=== PATIENT | male | born 2000 | race Caucasian/White ===

== ENCOUNTER 2021-10-21 06:45 | Day surgery (SDC) | payer BC ==
[2021-10-21] MEDS ORDERED: Ringers Lactate 1,000 ML IV ONE (07:20)
[2021-10-21] MEDS ORDERED: CEFAZOLIN SODIUM 1 GM/VIAL ONE (07:20)
[2021-10-21 07:30] LABS: SARS-CoV-2 Antigen Rapid Res Negative (Negative)
[2021-10-21 07:31] LABS: Absolute Lymphocytes (CBC) 2.1 K/uL (0.7-4.9); Hematocrit 45.6 % (39.6-49.0); Lymphocytes % 28.7 % (15.3-44.8); MCV 90.2 fL (80-100); MPV 7.7 fL (7.6-11.3); RBC Red Blood Cell Count 5.05 M/uL (4.33-5.43)
[2021-10-21 07:37] LABS: Potassium 4.1 mmol/L (3.5-5.1)
[2021-10-21] MEDS ORDERED: LIDOCAINE 2% MPF 5 ML VIAL ONE (07:59)
[2021-10-21] MEDS ORDERED: FENTANYL CITR 100 MCG/2 ML ONE (07:59)
[2021-10-21] MEDS ORDERED: ROCURONIUM 50 MG/5 ML VIAL IV ONE (07:59)
[2021-10-21] MEDS ORDERED: propofoL 200 MG/20 ML VIAL IV ONE (07:59)
[2021-10-21] MEDS ORDERED: MIDAZOLAM HCL 2 MG/2 ML INJ ONE (07:59)
[2021-10-21] MEDS ORDERED: ONDANSETRON 4 MG/2 ML VIAL ONE ×3 (08:00→11:00)
[2021-10-21] MEDS ORDERED: dexAMETHasone 4 MG/ML VIAL ONE (08:59)
--- NOTE | 2021-10-21 09:26 | P.BOP ---
Preoperative diagnosis: tender incarceRated umbilical hernia Postoperative diagnosis: same` Primary procedure: laparoscopic repair tender incarcerated umbilical hernia with mesh Scrum Master: GILA WOODRUFF (METER REPAIRER) Estimated blood loss: <10cc Findings: incarcerated omentum Anesthesia: General Complications: None Implants: ventralex medium Transferred to: Recovery Room Condition: Good
[2021-10-21] MEDS ORDERED: NEOSTIGMINE 1 MG/ML -10 ML VIAL ONE (09:42)
[2021-10-21] MEDS ORDERED: KETOROLAC 30 MG/ML INJ ONE (09:42)
[2021-10-21] MEDS ORDERED: GLYCOPYRROLATE 0.2 MG/ML SYR ONE (09:42)
[2021-10-21] MEDS: HYDROMORPHONE HCL 1 MG/ML INJ ONE ×4 (09:58→10:20)
[2021-10-21 10:35] VITALS: O2SAT 99
[2021-10-21 11:14] VITALS: TEMP 97.5
[2021-10-21] MEDS ORDERED: TRAMADOL 37.5mg/APAP 325mg PER TAB ONE (11:28)
[2021-10-21 12:31] VITALS: BP 124/72
--- NOTE | 2021-10-21 12:45 | DS ---
Diagnosis: Tender incarcerated umbilical hernia. Procedure: Laparoscopic repair of tender incarcerated umbilical hernia with mesh. Disposition: Home. Activity: As tolerated. No heavy lifting. Plan: Follow up in my office in 1 week. Call for appointment at [phone]. Keep area intact until w e see him again and visit. DELMY/MRAYSOL Voice ID: [id number] Report ID: [id number]
--- NOTE | 2021-10-21 12:45 | OP ---
Date of Procedure: 10/21/2021 Surgeon: Jose F Perez MD Donor Relations Manager: Niyah Castellano. Preoperative Diagnosis: Tender incarcerated umbilical hernia. Postoperative Diagnosis: Tender incarcerated umbilical hernia. Procedure: Laparoscopic repair of tender incarcerated umbilical hernia with mesh. Findings: Incarcerated omentum. Anesthesia: General plus local. Complications: None. Estimated Blood Loss: Less than 10 mL. Indication: This is the case of a 21-year-old patient, who comes to us with a tender umbilical herni a. The benefits, alternatives, and risks of laparoscopic versus open repair with mesh fully explaine d, which include, but not limited to infection, bleeding, damage to adjacent structures, anesthesia c omplication, recurrence, VT, and even . He also understands this may not relieve any symptoms. He might need more than one surgical intervention. He understood, signed a consent. Procedure In Detail: The patient was brought to the operating room, placed in supine position. Anes thesia was done without complication. Abdominal area was prepped and draped in the usual sterile fas hion. A time-out was called. A curvilinear incision was made in the umbilical area. Incision was c arried down until we found the hernia. We the umbilical skin from hernia sac, opened the h ernia sac, showed incarcerated omentum, but after removing some adhesions from the area, we were able to reduce it and fully inspected and it looks viable. Hernia sac was removed. Due to the size and consistency of the fascia, we believe this patient may benefit from the mesh, so we put a Adrianna troc ar through this incision after placing Vicryl #1 inside of the fascia and then obtained pneumoperiton eum. I placed a 5 mm trocar on the left and right side of the abdomen. This allowed me to switch th e cameras to a 5 mm to make sure that we inspected the midline. At that moment, we noticed that a me dium Ventralex mesh will be proper on him to cover the area at least to cover the area despite 3 to 5 mm overlap. Then, after that, we placed the mesh through the Adrianna trocar and removed the Adrianna t rocar. I secured the mesh underneath with SorbaFix, removed the straps of the mesh to come to the scia, then approximated the fascia with #1 Vicryl in a [id number] fashion multiple times, and th en once again laparoscopically continued the fixation circumferentially to diminish the chance of int estines to come in between. At the end, the mesh looked nice and flat against the anterior abdominal wall with no intestines in between. At that moment, I proceeded to deflate the area under direct vi sualization, removed the trocars and then closed the skin in subcuticular fashion and Steri-Strips on top. Sponge count, instrument counts correct. The patient tolerated the procedure well. The patie nt was sent to recovery in stable condition. DELMY/MARYSOL Voice ID: [id number] Report ID: [id number]
== END 2021-10-21 11:50 | disposition home or self-care (01) ==
LOC: PRE 06:45 → DS 06:45 → OR 11:50
PROVIDERS: ATTEND Surgery
PROC: 0WUF4JZ Supplement Abdominal Wall with Synthetic Substitute, Percutaneous Endoscopic Approach (ICD-10-PCS; principal; 2021-10-21 08:00)
DX: K42.0 Umbilical hernia with obstruction, without gangrene (principal); Z20.822 Contact with and (suspected) exposure to COVID-19; Z88.6 Allergy status to analgesic agent; I10 Essential (primary) hypertension; E11.9 Type 2 diabetes mellitus without complications
CPT/HCPCS: 85025; 80048; 36415; 88302; 87811; 49653; J2704; J1100; J2710; J2250; J3010; J1170 ×2; J7120; J2405 ×3; J0690; J2001